=== PATIENT | male | born 1975 | race Caucasian/White ===

== ENCOUNTER 2020-05-24 21:55 | Emergency (ER) | payer OTHER ==
[~2020-05-24] VITALS: Ht 175.3 cm; Wt 127.0 kg
[2020-05-24] MEDS ORDERED: ATACAND32 MG (22:27)
[2020-05-24] MEDS ORDERED: TOPROL XL25 M1 (22:27)
[2020-05-24] MEDS ORDERED: HYDROCHLOROTH12.5 MG (22:27)
== END 2020-05-25 04:18 | disposition home or self-care (01) ==
LOC: ER 21:55 → CPU-OBS 21:59 → ER 21:59
DX: I95.2 Hypotension due to drugs (principal); T50.995A Adverse effect of other drugs, medicaments and biological substances, initial encounter; Y92.89 Other specified places as the place of occurrence of the external cause
CPT/HCPCS: 70450; 93005; G0378; G0379

== ENCOUNTER 2022-10-12 11:18 | Emergency (ER) | payer OTHER ==
[~2022-10-12] VITALS: Ht 175.3 cm; Wt 108.9 kg
[~2022-10-12 11:18] MED LIST: ATACAND32 MG; HYDROCHLOROTH12.5 MG; TOPROL XL25 M1
== END 2022-10-12 17:24 | disposition home or self-care (01) ==
LOC: ER 11:18
DX: R42 Dizziness and giddiness (principal); Z20.822 Contact with and (suspected) exposure to COVID-19; Z91.013 Allergy to seafood

== ENCOUNTER 2023-08-02 05:19 | Emergency (ER) | payer OTHER ==
[~2023-08-02] VITALS: Ht 175.3 cm; Wt 111.1 kg
[~2023-08-02 05:19] MED LIST changes: +ASPIR 8181 MG; +ASPIRIN325 MG; +NORVASC2.5 MG
[2023-08-02] MEDS ORDERED: GLUMETZA500 MG (05:39)
[2023-08-02] MEDS ORDERED: JARDIANCE10 MG (05:39)
[2023-08-02] MEDS ORDERED: ORPHENADRINE CITRATE 30 MG/ML AMPUL IM STA (07:20)
[2023-08-02] MEDS ORDERED: KETOROLAC TROMETHAMINE 60 MG VIAL IM STA (07:20)
[2023-08-02 07:52] LABS: URINE APPEARANCE Clear; URINE BILIRRUBIN Negative (NEGATIVE); URINE BLOOD Moderate; URINE COLOR Yellow; URINE LEUKOCYTE Trace; URINE NITRATE Negative; URINE PROTEIN Negative (NEGATIVE); URINE UROBILINOGEN 0.2 E.U./dl
[2023-08-02 07:56] LABS: URINE BACTERIA 25.1 uL (0.0-1933); URINE EPITHELIAL CELLS 9.8 uL (0.0-38.8); URINE RBC 15.9 uL (0.0-20.8); URINE WBC 251.8 uL (0.0-23.2)
[2023-08-02 08:02] LABS: URINE GLUCOSE >=1000 MG/DL (NEGATIVE)
== END 2023-08-02 11:50 | disposition home or self-care (01) ==
LOC: ER 05:19
PROVIDERS: General Practice
DX: M54.50 Low back pain, unspecified (principal); Z91.013 Allergy to seafood; I10 Essential (primary) hypertension; Z87.442 Personal history of urinary calculi; E11.9 Type 2 diabetes mellitus without complications; Z79.84 Long term (current) use of oral hypoglycemic drugs

== ENCOUNTER 2023-12-08 12:47 | Emergency (ER) | payer OTHER ==
[~2023-12-08] VITALS: Ht 175.3 cm; Wt 117.9 kg
[~2023-12-08 12:47] MED LIST changes: +GLUMETZA500 MG; +JARDIANCE10 MG
[2023-12-08] MEDS ORDERED: KETOROLAC TROMETHAMINE 30 MG VIAL ONE ×2 (13:23→15:27)
[2023-12-08] MEDS ORDERED: LIDOCAINE HCL 1% 10ML VIAL ONE (13:23)
[2023-12-08] MEDS ORDERED: 0.9 % SODIUM CHLORIDE 1,000 ML IV STA (13:38)
[2023-12-08] MEDS ORDERED: KETOROLAC TROMETHAMINE 30 MG VIAL IV STA (13:39)
[2023-12-08 13:52] LABS: HEMATOCRIT 47.2 % (39.0-48.0); HEMOGLOBIN 16.2 g/dL (13-16.00); MEAN CELL VOLUME 93.9 fL (80.0-100.00); MEAN CORPUSCULAR HEMOGLOBIN 32.3 pg (27.00-32.0); MEAN CORPUSCULAR HGB CONC 34.4 g/dl (32.0-36.0); PLATELET COUNT 246 K/uL (150-450); RED BLOOD COUNT 5.03 M/uL (4.00-6.00); RED CELL DISTRIBUTION WIDTH 13.6 % (11.5-14.5)
[2023-12-08 14:16] LABS: proBNP 29 pg/mL (0-39)
[2023-12-08 14:19] LABS: INR 0.94; PARTIAL THROMBOPLASTIN TIME 27.1 SECONDS (22.0-34.0); PROTHROMBIN TIME 9.9 SECONDS (9.0-11.5)
[2023-12-08 14:21] LABS: TROPONIN I hs < 3.0 PG/ML (42.2-82.3)
[2023-12-08 14:42] LABS: CALCIUM 10.5 mg/dL (8.5-10.1); CREATININE SERUM 0.76 mg/dL (0.70-1.30); GFR 108.56; POTASSIUM 4.57 mEq/L (3.5-5.1)
[2023-12-08] MEDS ORDERED: KETOROLAC TROMETHAMINE 30 MG VIAL IM ONE (16:15)
[2023-12-08 18:10] LABS: URINE APPEARANCE Clear; URINE BILIRRUBIN Negative (NEGATIVE); URINE BLOOD Negative; URINE COLOR Yellow; URINE KETONE Negative (NEGATIVE); URINE LEUKOCYTE Negative; URINE NITRATE Negative; URINE PROTEIN Negative (NEGATIVE); URINE UROBILINOGEN 0.2 E.U./dl
[2023-12-08 18:11] LABS: URINE BACTERIA 16.3 uL (0.0-1933); URINE EPITHELIAL CELLS 2.6 uL (0.0-38.8); URINE GLUCOSE >=1000 MG/DL (NEGATIVE); URINE RBC 1.2 uL (0.0-20.8); URINE WBC 2.3 uL (0.0-23.2)
[2023-12-08 18:12] LABS: URINE CAST 1.06 uL (0.0-1.40)
[2023-12-08] MEDS ORDERED: NORFLEX100MG PO (18:40)
== END 2023-12-08 19:20 | disposition home or self-care (01) ==
LOC: ER 12:47
PROVIDERS: General Practice
DX: R07.89 Other chest pain (principal); M94.0 Chondrocostal junction syndrome [Tietze]; I10 Essential (primary) hypertension; E11.9 Type 2 diabetes mellitus without complications; Z79.84 Long term (current) use of oral hypoglycemic drugs; Z20.822 Contact with and (suspected) exposure to COVID-19; Z91.013 Allergy to seafood